=== PATIENT | male | born 1985 | race Caucasian/White ===

== ENCOUNTER 2018-01-10 23:30 | Emergency (ER) | payer BC, MEDICAID, OTHER ==
[~2018-01-10] VITALS: Ht 188 cm; Wt 159.8 kg
[~2018-01-10 23:30] MED LIST: HYDR-569 PO; IBUP-1986 PO
[2018-01-11 00:22] LABS: PROTHROMBIN TIME 10.3 SECONDS (9.0-12.0)
[2018-01-11 00:23] LABS: HEMATOCRIT 46.5 % (42.0-52.0); HEMOGLOBIN 15.1 g/dl (14.0-17.9); MEAN CORPUSCULAR HEMOGLOBIN 26.8 PG (27.0-31.0); MEAN CORPUSCULAR HGB CONC 32.4 % (33.0-36.5); MEAN CORPUSCULAR VOLUME 82.6 FL (78-98); MEAN PLATELET VOLUME 10.6 FL (7.4-10.4); PLATELET COUNT 299 X10'3 (140-440); RED BLOOD COUNT 5.63 X10'6 (4.70-6.10); RED CELL DISTRIBUTION WIDTH 14.4 % (11.5-14.5); WHITE BLOOD COUNT 13.4 X10'3 (4.5-11.0)
[2018-01-11 00:24] LABS: CLARITY,URINE CLEAR (Clear); COLOR,URINE YELLOW (Yellow); GLUCOSE, URINE NEGATIVE (Neg); KETONES,URINE TRACE mg/dl (Neg); LEUKOCYTE ESTERASE ,URINE NEGATIVE (Neg); NITRITES, URINE NEGATIVE (Neg); OCCULT BLOOD,URINE NEGATIVE (Neg); PH,URINE 5.5 (4.8-8.0); PROTEIN,URINE NEGATIVE (Neg)
[2018-01-11 00:31] LABS: UA COLLECTION TYPE CLN CATCH MIDSTREAM
[2018-01-11 00:31] LABS: ALANINE AMINOTRANSFERASE 101 U/L (12-78); ALBUMIN 4.2 G/DL (3.4-5.0); ALBUMIN/GLOBULIN RATIO 1.1 (1.1-1.5); ALKALINE PHOSPHATASE 91 IU/L (46-116); ANION GAP 10 (8-16); ASPARTATE AMINO TRANSFERASE 44 U/L (10-37); BILIRUBIN,TOTAL 0.6 MG/DL (0.1-1.0); BLOOD UREA NITROGEN 15 MG/DL (7-18); BUN/CREATININE RATIO 11.4 (5.4-32.0); CHLORIDE 104 MMOL/L (99-107); CREATININE 1.32 MG/DL (0.60-1.10); GLUCOSE 96 MG/DL (70-104); POTASSIUM 4.2 MMOL/L (3.5-5.1); SODIUM 143 MMOL/L (135-145); TOTAL CARBON DIOXIDE 28.9 MMOL/L (24-32); TOTAL PROTEIN 8.1 G/DL (6.4-8.2); eGFR 62 ML/MIN
[2018-01-11] MEDS ORDERED: ondansetron/PF 4mg/2ml inj IV ONE (01:05)
[2018-01-11] MEDS ORDERED: normal saline 1000ML IV soln IVB ONE (01:05)
[2018-01-11] MEDS ORDERED: morphine 4 MG/ML inj SYRINge IV ONE (01:05)
[2018-01-11 01:09] LABS: LARGE PLATELETS FEW; PLATELET ESTIMATE NORMAL; TOTAL CELLS COUNTED 100
[2018-01-11 01:10] LABS: TOXIC GRANULATION 1+
[2018-01-11 01:11] LABS: STOMATOCYTES 1+; TOXIC VACUOLATION FEW
[2018-01-11 01:34] LABS: LIPASE 126 U/L (73-393)
[2018-01-11] MEDS ORDERED: iohexol 300mg/ml 100ml inj. ONE (01:40)
[2018-01-11 04:01] VITALS: BP 146/106
[2018-01-11] MEDS ORDERED: FAMO-128 PO (04:11)
== END 2018-01-11 04:30 | disposition home or self-care (01) ==
LOC: ER 23:31
DX: K29.00 Acute gastritis without bleeding (principal); N28.89 Other specified disorders of kidney and ureter; F17.200 Nicotine dependence, unspecified, uncomplicated; Z79.899 Other long term (current) drug therapy; Z98.890 Other specified postprocedural states
CPT/HCPCS: 36415; 71045; 74176; 80053; 81003; 83690; 84484; 85025; 85610; 93005; 96361; 96374; 96375; 99285; J2270; J2405; J7030; Q9967

== ENCOUNTER 2019-08-29 20:29 | Emergency (ER) | payer BC ==
[~2019-08-29] VITALS: Ht 180.3 cm; Wt 145.0 kg
[~2019-08-29 20:29] MED LIST changes: +FAMO-128 PO; +HYDR-4383 PO; -HYDR-569 PO
[2019-08-29 20:32] VITALS: BP 143/85
[2019-08-29] MEDS ORDERED: dexamethasone sod phosphate 10mg/ml inj PO STA (21:06)
[2019-08-29] MEDS ORDERED: PRED20TA PO (21:08)
[2019-08-29] MEDS ORDERED: diphenhydrAMINE 25mg capsule PO ONE (21:10)
== END 2019-08-29 21:27 | disposition home or self-care (01) ==
LOC: ER 20:30
DX: T78.40XA Allergy, unspecified, initial encounter (principal); Z98.890 Other specified postprocedural states; Z79.899 Other long term (current) drug therapy; X58.XXXA Exposure to other specified factors, initial encounter
CPT/HCPCS: 99283; J1100; Q0163